=== PATIENT | male | born 1985 | race Caucasian/White ===

== ENCOUNTER → 2016-11-01 | Outpatient (CLI) | payer OTHER ==
--- NOTE | 2016-11-01 15:28 | DI ---
RIGHT DIAGNOSTIC MAMMOGRAMS, 11/01/2016 2:43 PM: Clinical History: Right breast mass. Prior Exam: None at this facility. Digital 2-D routine mammograms and digital tomosynthesis scans of the right breast are obtained with the [employer] Digital Breast Unit. C-View images are obtained in the same projections as in the screening exam. CAD review is also performed. Breast tissue density is rated as dense. There is considerable breast tissue extending both medially and laterally and superiorly and inferiorly from the nipple. There is no mass or focus of architectur al distortion identified in this breast. No abnormal calcifications are noted. Skin contour, nipple, and lower axillary region are normal. Follow Up: Breast ultrasound is pending. BIRADS Category: 2. Benign finding. There is no discrete mass but there is considerable amount of fib jazlyn breast tissue radiate from the nipple. Assessment: Benign finding.
--- NOTE | 2016-11-01 23:37 | DI ---
RIGHT BREAST ULTRASOUND, 11/01/2016 2:44 PM: Clinical History: Right breast lump. The diagnostic mammogram with digital tomosynthesis performed to day shows a large and diffuse amount of fibroglandular breast tissue in this male patient. No discret e mass was identified. Scans are performed by the technologist and myself through all four quadrants of the right breast wit h the high resolution linear array probe. Color Doppler ultrasound was also performed. Scans were als o performed of the left breast for comparison. Scans reveal no solid or cystic mass in the right breast. However, there is considerable fibroglandul ar breast tissue visualized circumferentially around the nipple extending outwards with a radius of a pproximately 4 cm. This would be consistent with extensive gynecomastia. Scans of the left breast berenice w no fibroglandular breast tissue. Follow Up: The patient was advised to monitor the right breast with monthly self breast examinations. He was instructed to contact his health care provider promptly if a discrete lump is encountered. He was advised to have [facility] follow-[facility]. If at the time of the breast clinical examination there is still cl inical concern regarding this area, then surgical consultation would be indicated. BIRADS Category: 2. Benign finding. There is an extensive amount of breast tissue visualized in the r ight breast surrounding the nipple. No discrete solid or cystic mass could be identified. This would represent extensive gynecomastia. Assessment: Benign finding.
== END ==
LOC: MAMMO 14:37
PROVIDERS: ATTEND Physician Assistant
DX: N63 Unspecified lump in breast (principal); N62 Hypertrophy of breast
CPT/HCPCS: 76641; G0206; G0279

== ENCOUNTER → 2016-12-12 | Outpatient (CLI) | payer OTHER | LOC: LAB 11:12 | PROVIDERS: ATTEND Surgery | DX: N62 Hypertrophy of breast (principal) | CPT/HCPCS: 36415; 84403 ==

== ENCOUNTER → 2016-12-20 | Outpatient (CLI) | payer OTHER ==
--- NOTE | 2016-12-20 14:42 | DI ---
US SCROTUM,12/20/2016 12:56 PM: Clinical History: Gynecomastia. Previous Exam: None at this facility. Findings: Multiple grayscale and color Doppler sonographic images are obtained through the scrotum and demonstr ate a normal-appearing right testicle measured 4.9 x 2.2 x 2.8 cm. The left testicle measured 4.2 x 2.4 x 2.8 cm. There are no masses, and Doppler flow is normal. There is a small left epididymal head cyst. The overlying skin is unremarkable. Impression: Normal testicular ultrasound without evidence of intratesticular mass.
== END ==
LOC: US 12:50
PROVIDERS: ATTEND Surgery
DX: N62 Hypertrophy of breast (principal); Z12.71 Encounter for screening for malignant neoplasm of testis
CPT/HCPCS: 76870

== ENCOUNTER → 2017-02-02 | Outpatient (CLI) | payer OTHER | LOC: LAB 11:22 | PROVIDERS: ATTEND Surgery | DX: N62 Hypertrophy of breast (principal) | CPT/HCPCS: 36415; 84146; 84443 ==